=== PATIENT | male | born 1985 | race Caucasian/White ===

== ENCOUNTER 2025-06-12 14:12 | Emergency (ER) | payer BC, MEDICAID, OTHER ==
[~2025-06-12] VITALS: Ht 185.4 cm; Wt 100.0 kg
[~2025-06-12 14:12] MED LIST: HYDROCODONE; XANAX
--- NOTE | 2025-06-12 14:49 | Physician Documentation ---
History of Present Illness General Chief Complaint: Headache Stated Complaint: NECK PAIN Time Seen by MD: 14:49 Primary Medical Doctor: [facility] History of Present Illness Initial Comments Patient is a 39-year-old male who recently had an epidural injection in his neck three days prior to arrival to the emergency department. The patient states he has has a headache that has positional since then he procedure he states his symptoms are significantly worsened by sitting up and he has light sensitivity. The patient denies any fevers or chills. Patient's symptoms are moderate and persistent. Medication Reconciliation Allergies: Coded Allergies: No Known Allergies (Unverified , 01/19/12) Miscellaneous Medications [Hydrocodone], (Reported) [Xanax], (Reported) Past Medical History Past Medical History: Chronic Back Pain Past Surgical History: no surgical history Smoking: Non-Smoker Alcohol Use: Occasionally Drug Use: none Lives with: Family Lives In: Home Occupation: employed Review of Systems All Other Systems at this time: Reviewed and Negative Physical Exam Physical Exam Vital Signs: Temperature: 97.2, Source: Temporal, Heart Rate: 81, Respiratory Rate: 18, BP: 135/100, Pulse Oximetry: 99, Weight: 100.000 Oxygen Flow Rate: 0 Physical Exam VITALS: Reviewed and as above. GENERAL: Alert, no apparent distress. HEENT: Normocephalic, atraumatic, PERRL, EOMI, dry mucosa, no erythema RESPIRATORY: Lungs clear, normal breath sounds, no respiratory distress. CHEST: No accessory muscle use, no retractions CV: Regular rate, rhythm, no edema, no murmur, No: JVD GI: Soft, non-tender, bowels sounds present, no rebound, guarding, or rigidity BACK: No CVA tenderness, or swelling MUSCULOSKELETAL: No deformities, no edema SKIN: Warm and dry, no rash NEURO: Oriented x4, No motor or sensory deficit PSYCH: Normal mood and affect, no agitation Progress Results/Orders Results/Orders Completed Orders - OHLFS,MAMIE Shah MD Normal Saline 1000ml (0.9% Sodium Chlori (06/12/25 15:30) Normal Saline 1000ml (0.9% Sodium Chlori (06/12/25 15:30) Ketorolac Trometh 30mg/Ml Vial (Toradol (06/12/25 15:30) Metoclopramide Inj (Reglan Inj) (06/12/25 15:30) Diphenhydramine Inj (Benadryl Inj.) (06/12/25 15:30) Medical Decision Making Additional information obtaine: family Findings Patient presented with a classic spinal headache after an epidural injection the patient was discussed with the anesthesiology who agreed to do a blood patch the patient was also given a migraine cocktail with mild improvement in his symptoms the patient has a blood patch done by anesthesia he symptoms are significantly better the patient will be discharged. Prior hospitalizations were reviewed. The pulse oximetry was interpreted as normal and adequate. Differential Diagnosis Migraine headache, spinal headache, tension headache Departure Impression: Primary Impression: Headache Qualified Codes: R51.9 - Headache, unspecified Discharge Instructions: Headache Referrals: NO PRIMARY CARE PROVIDER (PCP) Signature Scribe Signature: No scribe Attestation: The note accurately reflects work and decisions made by me.Mamie Mendoza MD 06/25/25 02:56 MAMIE MENDOZA MD Jun 12, 2025 14:49
[2025-06-12] MEDS: normal saline 1000ML IV soln IVB ONE ×2 (15:30→15:51)
[2025-06-12] MEDS: metoclopramide 5 mg/ml inj IV ONE (15:49)
[2025-06-12] MEDS: ketorolac trometh 30MG/ML vial 30 MG/ML VIAL IV ONE (15:50)
--- NOTE | 2025-06-12 17:13 | PROGRESS NOTE ---
Progress Note Anesthesia Progress Note: ANESTHESIA PROCEDURE NOTE FOR LUMBER EPIDURAL BLOOD PATCH Objective Vitals Vital Signs Date Time Temp Pulse Resp B/P (MAP) Pulse Ox O2 Delivery O2 Flow Rate FiO2 06/12/25 15:50 14 06/12/25 14:53 69 130/93 (105) 97 0 06/12/25 14:15 97.2 Problem\Assessment\Plan Additional Plan 39 year old male who presented to the Emergency Room after 72 hours of headache after he had received an Epidural Steroid injection at L5-S1 at [facility] on 06/09/25. His headache is bifrontal radiating to the back of the head and worsening when standing up. He has been miserable, light sensitive, unable to stand without worsening headache symptoms, and unable to perform his activities of daily living. There is no fever, chills, SOB or other complaints. He denies a history of easy bleeding or bruising. He was explained his options including conservative management vs epidural blood patch, including common risks, potential complications, and alternatives and he consented to proceed with the blood patch. Procedure: He was placed on monitors, and in the sitting position. His back was prepped with betadine solution and draped properly. With sterile technique, 3 mL of 1%lidocaine was injected at L4-L5. An 18ga Hustead glass needle was introduced in the midline at L4-L5 and advanced using the Loss of Resistance technique. After advancement of 5cm, DORIAN was obtained with air. Then, 17mL of the patient's own blood obtained in a sterile fashion by the information assistant RN was slowly introduced into the patients epidural space until the patient sensed back fullness/pressure. The need was removed and a dressing applied. The patient was kept supine and still for 20 minutes, and subsequently transferred back to the Emergency Room. His Vitals remained stable BP 128/86, HR 65, sPO2 98%, RR 16. His pain score for the headache improved from 10/10 to 3/10. ALINE DANIEL MD Jun 12, 2025 17:13
--- NOTE | 2025-06-12 17:24 | PROGRESS NOTE ---
Progress Note Anesthesia Progress Note: ADDENDUM TO ANESTHESIA PROCEDURE NOTE FOR EPIDURAL BLOOD PATCH Objective Vitals Vital Signs Date Time Temp Pulse Resp B/P (MAP) Pulse Ox O2 Delivery O2 Flow Rate FiO2 06/12/25 15:50 14 06/12/25 14:53 69 130/93 (105) 97 0 06/12/25 14:15 97.2 Problem\Assessment\Plan Additional Plan EBL was minimal There were no apparent complications. ALINE DANIEL MD Jun 12, 2025 17:24
[2025-06-12 18:34] VITALS: BP 127/79; PULSE 63; RESP 16; TEMP 97.2; O2SAT 98
== END 2025-06-12 18:40 | disposition home or self-care (01) ==
LOC: ER 14:13
DX: R51.9 Headache, unspecified (principal); G89.29 Other chronic pain; Z72.89 Other problems related to lifestyle
CPT/HCPCS: 96361; 96374; 96375; 99284; J1200; J1885; J2765; J7030